=== PATIENT | female | born 1990 | race Caucasian/White ===

== ENCOUNTER 2018-06-29 00:04 | Emergency (ER) | payer MEDICAID ==
[~2018-06-29] VITALS: Ht 157.5 cm; Wt 63.5 kg
[2018-06-29 00:12] VITALS: BP 147/94
--- NOTE | 2018-06-29 00:13 | NUR ---
PT AMBULATED TO BED #11
--- NOTE | 2018-06-29 00:15 | NUR ---
PATIENT PRESENTS ER WITH C/O ABDOMINAL PAIN AND NAUSEA X TODAY. PT IS A/0X 4. BOWEL SOUNDS ACTIVE IN ALL 4 Q. PATIENT STATES PAIN OF 5/10 AT THIS TIME; VSS; PATIENT POSITIONED FOR COMFORT; HOB ELEVATED; BEDRAILS UP X2; BED DOWN. ER MD MADE AWARE OF PT STATUS.
[2018-06-29] MEDS ORDERED: LORazepam 1 MG TAB PO ONE (00:30)
[2018-06-29 01:13] LABS: ANION GAP 9.3 (8-16); CARBON DIOXIDE 27.9 mmol/L (21-32); CREATININE 0.6 mg/dL (0.6-1.3); POTASSIUM 3.2 mmol/L (3.5-5.1)
--- NOTE | 2018-06-29 01:15 | NUR ---
PT SITTING UP IN BED, VSS FAMILY AT BEDSIDE.
[2018-06-29 01:16] LABS: ALBUMIN 4.1 g/dL (3.4-5.0); TOTAL BILIRUBIN 0.2 mg/dL (0.0-1.0)
[2018-06-29] MEDS ORDERED: POTASSIUM CHLORIDE 10 MEQ TABER PO ONE (01:25)
[2018-06-29 02:16] VITALS: BP 133/78
--- NOTE | 2018-06-29 02:16 | NUR ---
Patient discharged with v/s stable. Written and verbal after care instructions given and explained. Patient alert, oriented and verbalized understanding of instructions. Ambulatory with steady gait. All questions addressed prior to discharge. ID band removed. Patient advised to follow up with PMD. Rx of ZOFRAN WAS given. Patient educated on indication of medication including possible reaction and side effects. Opportunity to ask questions provided and answered.
== END 2018-06-29 02:16 | disposition home or self-care (01) ==
LOC: MED 00:04
DX: E87.6 Hypokalemia (principal); R11.2 Nausea with vomiting, unspecified; F41.9 Anxiety disorder, unspecified
CPT/HCPCS: 36415; 80053; 81025; 83690; 99283